=== PATIENT | female | born 1990 | race African-American/Black ===

== ENCOUNTER 2018-02-26 20:04 | Emergency (ER) | payer OTHER ==
[~2018-02-26] VITALS: Ht 167.6 cm; Wt 52.0 kg
[2018-02-26 20:41] LABS: URINE BILIRUBIN - DIPSTICK NEGATIVE (NEGATIVE); URINE BLOOD DIPSTICK NEGATIVE (NEGATIVE); URINE CLARITY CLEAR; URINE COLOR YELLOW; URINE GLUCOSE - DIPSTICK NEGATIVE (NEGATIVE); URINE KETONE NEGATIVE (NEGATIVE); URINE LEUK ESTERASE NEGATIVE (NEGATIVE); URINE NITRITE - DIPSTICK NEGATIVE (Negative); URINE PROTEIN - DIPSTICK NEGATIVE (NEG-TRACE); URINE UROBILINOGEN - DIPSTICK 0.2 E.U./dL (0.2)
[2018-02-26 21:03] LABS: HEMATOCRIT 33.1 % (37.0-47.0); HEMOGLOBIN 11.2 g/dl (12.0-16.0); IMMATURE GRANULOCYTES 0.2 % (0.0-5.0); MEAN CELL VOLUME 96.8 fL CALC (80.0-100.0); MEAN CORPUSCULAR HGB 32.7 pG CALC (26.0-32.0); MEAN CORPUSCULAR HGB CONC 33.8 g/L CALC (32.0-36.0); NEUT# 5.68 thou/uL (2.00-7.15); RED BLOOD COUNT 3.42 mill/uL (4.20-5.60); RED CELL DISTRI WIDTH 12.3 % (11.5-15.5)
[2018-02-26 21:17] LABS: ALBUMIN 3.5 g/dL (3.2-5.0); ALKALINE PHOSPHATASE 88 u/l (38-126); ANION GAP 14 (6-22 (CALC)); BILIRUBIN, TOTAL 0.2 mg/dL (0.0-1.4); BUN 8 mg/dL (7-17); BUN/CREATININE RATIO 15 (12-20 (CALC)); CARBON DIOXIDE 23 mmol/l (22-30); CHLORIDE 106 mmol/l (95-108); CREATININE 0.5 mg/dL (0.5-1.0); GFR > 60 ML/MIN (>=60 (CALC)); GFR FOR AFR.AMER. > 60 ML/MIN (>=60 (CALC)); POTASSIUM 3.7 mmol/l (3.5-5.1); SGOT/AST 18 u/l (14-36); SGPT/ALT 20 u/l (9-52); SODIUM 139 mmol/l (137-146); TOTAL PROTEIN 6.4 g/dL (6.3-8.2)
[2018-02-26] MEDS ORDERED: ZOFRAN ODT4 MG PO (21:20)
[2018-02-26 21:59] VITALS: BP 100/59
== END 2018-02-26 21:59 | disposition home or self-care (01) ==
LOC: ED 20:04
PROVIDERS: Emergency Medicine
DX: O26.899 Other specified pregnancy related conditions, unspecified trimester (principal); R11.2 Nausea with vomiting, unspecified; Z3A.00 Weeks of gestation of pregnancy not specified